=== PATIENT | female | born 1950 | race Caucasian/White ===

== ENCOUNTER → 2021-10-05 | Day surgery (SDC) | payer MEDICARE, OTHER ==
[~2021-10-05] VITALS: Ht 170.2 cm; Wt 68.2 kg
[~2021-10-05] MED LIST: ANASTROZOLE1 MG PO; ASCORBIC ACID500 MG PO; CALTRATE 600 +1 EAC1 PO; FLAXSEED OIL1000 M1 PO; LOVAZA1 GM PO; MAG-OXIDE 400M400 MG PO; MELOXICAM15 MG PO; PROLIA60 MG/1 ML SC
[2021-10-05 08:25] LABS: HCT 47.9 % (37.0-47.0); MCH 30.9 pg (25.0-31.0); MCHC 33.4 g/dL (32.0-36.0); MCV 92.5 fL (78.0-100.0); MPV 8.4 fL (6.0-9.5); RBC 5.18 M/uL (4.20-5.40); RDW 11.9 % (11.5-14.0); WBC 8.6 K/uL (4.0-10.5)
[2021-10-05 08:48] LABS: BILIRUBIN - TOTAL 0.4 mg/dL (0.2-1.0); BUN/CREAT RATIO (CALC) 20.6 RATIO; CREATININE 0.63 mg/dL (0.51-0.95); GLOBULIN (CALCULATION) 3.5 g/dL; POTASSIUM 3.7 mmol/L (3.5-5.1); TOTAL PROTEIN 7.5 g/dL (6.4-8.2)
== END | disposition home or self-care (01) ==
LOC: FAS 07:57
PROVIDERS: Surgery
DX: Z12.11 Encounter for screening for malignant neoplasm of colon (principal); K31.9 Disease of stomach and duodenum, unspecified; K22.2 Esophageal obstruction; K21.9 Gastro-esophageal reflux disease without esophagitis; K29.70 Gastritis, unspecified, without bleeding; K63.89 Other specified diseases of intestine; M54.89 Other dorsalgia; Z90.49 Acquired absence of other specified parts of digestive tract
CPT/HCPCS: 43239; 43249; G0121; 36415; 80053; C1726; J2704; J7120

== ENCOUNTER 2021-10-21 20:31 | Emergency (ER) | payer MEDICARE, OTHER ==
[2021-10-21 20:59] LABS: BASOPHIL 0.6 % (0-2); EOSINOPHIL 4.3 % (0-7); HGB 15.1 g/dl (12.5-16.0); LYMPHOCYTE 27.7 % (15-48); MCH 31.1 pg (25.0-31.0); MCHC 33.6 g/dL (32.0-36.0); MCV 92.6 fL (78.0-100.0); MONOCYTE 8.1 % (0-12); MPV 8.3 fL (6.0-9.5); NEUTROPHIL 58.6 % (41-80); NRBC 0; PLT 306 K/uL (150-400); RBC 4.86 M/uL (4.20-5.40); RDW 12.1 % (11.5-14.0); WBC 9.7 K/uL (4.0-10.5)
[2021-10-21 21:03] LABS: PROTHROMBIN TIME 12.6 SECONDS (11.8-13.4)
[2021-10-21 21:12] LABS: ALBUMIN 3.9 g/dL (3.4-5.0); BILIRUBIN - TOTAL 0.2 mg/dL (0.2-1.0); BUN/CREAT RATIO (CALC) 41.2 RATIO; CREATININE 0.8 mg/dL (0.51-0.95); GLOBULIN (CALCULATION) 3.2 g/dL; POTASSIUM 3.9 mmol/L (3.5-5.1); TOTAL PROTEIN 7.1 g/dL (6.4-8.2)
== END 2021-10-22 00:05 | disposition other institution (70) ==
LOC: FER 20:31
PROVIDERS: Emergency Medicine
DX: S36.113A Laceration of liver, unspecified degree, initial encounter (principal); S22.089A Unspecified fracture of T11-T12 vertebra, initial encounter for closed fracture; Z88.1 Allergy status to other antibiotic agents; V49.50XA Passenger injured in collision with unspecified motor vehicles in traffic accident, initial encounter
CPT/HCPCS: 36415; 70450; 71260; 72125; 72128; 80053; 83690; 84484; 85025; 85610; 93005; J7030; Q9967